=== PATIENT | female | born 1955 | race Caucasian/White ===

== ENCOUNTER 2018-06-24 13:01 | Emergency (ER) | payer OTHER ==
[~2018-06-24] VITALS: Ht 165.1 cm; Wt 110.2 kg
[~2018-06-24 13:01] MED LIST: ACETAMINOPHEN325 M1 PO; CEPHALEXIN 500500 M3 PO; DOXYCYCLINE 10100 MG PO; GLUCOPHAGE1000 MG PO; HYDROCODONE-AP1 EAC6 PO; JANUMET XR 50-1 EAC1; KEFLEX500 MG PO; KLOR-CON SPRIN10 MEQ; LISINOPRIL-HCT1 EAC2 PO; VITAMIN D 5050000 I1; ZOCOR 10 MG TAB10 M1 PO
[2018-06-24] MEDS ORDERED: LEVEMIR100 UNIT/1 SUBQ (13:11)
[2018-06-24] MEDS ORDERED: CLEOCIN HCL300 MG PO (13:42)
[2018-06-24 14:00] VITALS: BP 131/87
== END 2018-06-24 14:02 | disposition home or self-care (01) ==
LOC: M.ERS 13:01
DX: L02.213 Cutaneous abscess of chest wall (principal); E11.9 Type 2 diabetes mellitus without complications; I10 Essential (primary) hypertension; E78.00 Pure hypercholesterolemia, unspecified; Z90.49 Acquired absence of other specified parts of digestive tract; Z90.710 Acquired absence of both cervix and uterus; Z88.0 Allergy status to penicillin; Z88.2 Allergy status to sulfonamides

== ENCOUNTER 2018-06-26 14:35 | Emergency (ER) | payer OTHER ==
[~2018-06-26] VITALS: Ht 165.1 cm; Wt 108.9 kg
[~2018-06-26 14:35] MED LIST changes: +CLEOCIN HCL300 MG PO; +LEVEMIR100 UNIT/1 SUBQ
[2018-06-26 14:43] VITALS: BP 131/75
== END 2018-06-26 15:10 | disposition home or self-care (01) ==
LOC: M.ERS 14:35
DX: Z48.00 Encounter for change or removal of nonsurgical wound dressing (principal); E11.9 Type 2 diabetes mellitus without complications; I10 Essential (primary) hypertension; E78.00 Pure hypercholesterolemia, unspecified; Z90.49 Acquired absence of other specified parts of digestive tract; Z90.710 Acquired absence of both cervix and uterus; Z88.0 Allergy status to penicillin; Z88.2 Allergy status to sulfonamides